=== PATIENT | male | born 1965 | race Native Hawaiian/Other Pacific Islander ===

== ENCOUNTER 2021-08-29 23:56 | Emergency (ER) | payer OTHER ==
[~2021-08-29] VITALS: Ht 170.2 cm; Wt 136.1 kg
[2021-08-30 01:06] LABS: PLATELET COUNT 120 K/uL (142-355)
[2021-08-30 01:22] LABS: POTASSIUM 4.4 mmol/L (3.6-5.2)
[2021-08-30 02:10] VITALS: BP 149/87; TEMP 98.1
[2021-08-30] MEDS ORDERED: ATEN25TA21 PO (03:22)
[2021-08-30] MEDS ORDERED: BUMETANIDE1 MG PO (03:23)
[2021-08-30] MEDS ORDERED: CELEXA40 MG PO (03:24)
[2021-08-30] MEDS ORDERED: CARAFATE1 GM PO (03:24)
[2021-08-30] MEDS ORDERED: PHENYTOIN EX100 MG PO ×2 (03:27→03:28)
[2021-08-30] MEDS ORDERED: TAMS0.4C PO (03:29)
[2021-08-30] MEDS ORDERED: FURO20TA67 PO (03:29)
[2021-08-30] MEDS ORDERED: BENA5CAP4 PO (03:30)
[2021-08-30] MEDS ORDERED: OMEPRAZOLE DR40 MG PO (03:32)
[2021-08-30] MEDS ORDERED: POTASSIUM CL ER PO ×2 (03:41→03:43)
[2021-08-30] MEDS ORDERED: SEROQUEL100 MG PO ×2 (03:44→03:45)
[2021-08-30] MEDS ORDERED: TUMS E-X750 MG PO (03:48)
[2021-08-30] MEDS ORDERED: D325 MCG PO (03:52)
== END 2021-08-30 02:10 | disposition other institution (70) ==
LOC: ED 23:56
PROVIDERS: Family Medicine
DX: R45.1 Restlessness and agitation (principal); Z11.52 Encounter for screening for COVID-19; Z04.6 Encounter for general psychiatric examination, requested by authority
CPT/HCPCS: 36415; 80053; 81000; 85027; 87635; 93005; 99283; U0003